=== PATIENT | female | born 1975 | race Caucasian/White ===

== ENCOUNTER 2016-11-04 14:31 | Emergency (ER) | payer OTHER ==
[~2016-11-04] VITALS: Ht 154.9 cm; Wt 95.0 kg
[2016-11-04] MEDS ORDERED: LORAZEPAM 1MG TABLET PO ONE (16:30)
[2016-11-04 18:40] VITALS: BP 118/76
== END 2016-11-04 19:05 | disposition home or self-care (01) ==
LOC: ER 16:23
DX: F41.0 Panic disorder [episodic paroxysmal anxiety] (principal); K59.00 Constipation, unspecified
CPT/HCPCS: 99284

== ENCOUNTER 2024-02-13 08:56 | Emergency (ER) | payer OTHER ==
[~2024-02-13] VITALS: Ht 157.5 cm; Wt 102.0 kg
[2024-02-13 09:04] VITALS: O2SAT 100
[2024-02-13 09:27] LABS: CLARITY URINE CLEAR (CLEAR); COLOR URINE YELLOW (YELLOW); GLUCOSE URINE NEGATIVE (NEGATIVE); KETONES URINE NEGATIVE (NEGATIVE); LEUKOCYTE ESTERASE URINE NEGATIVE (NEGATIVE); NITRITE URINE NEGATIVE (NEGATIVE); OCCULT BLOOD URINE NEGATIVE (NEGATIVE); PROTEIN URINE NEGATIVE (NEGATIVE); SPECIFIC GRAVITY URINE 1.013 (1.005-1.030); UROBILINOGEN URINE 0.2 E.U./dL (0.2-1.0)
[2024-02-13 09:34] LABS: BASOPHILS % 0.7 % (0.0-2.0); EOSINOPHILS % 1.5 % (0.0-5.0); HEMOGLOBIN. 14.8 g/dL (12.0-16.0); LYMPHOCYTES % 31.9 % (20.0-50.0); MEAN CORPUSCULAR HEMOGLOBIN 30.4 pg (28.0-32.0); MEAN CORPUSCULAR HGB CONC 34.4 g/dL (31.0-37.0); MEAN CORPUSCULAR VOLUME 88.4 fL (81.0-99.0); MEAN PLATELET VOLUME 7.5 fl (7.4-10.4); MONOCYTES % 4.8 % (2.0-8.0); NEUTROPHILS % 61.1 % (40.0-76.0); PLATELET 369 x1000/uL (130-400); RED BLOOD CELL COUNT 4.86 mill/uL (4.2-5.4); RED CELL DISTRIBUTION WIDTH 13.3 % (11.6-14.6); WHITE BLOOD COUNT 9.8 x1000/uL (4.5-11.0)
[2024-02-13 09:39] LABS: CHLORIDE 104 mEq/L (98-107); POTASSIUM 3.4 mEq/L (3.5-5.1); SODIUM 138 mEq/L (136-145)
[2024-02-13 09:40] LABS: CALCIUM 9.6 mg/dL (8.7-10.4); CARBON DIOXIDE 29 mEq/L (21-32)
[2024-02-13 09:45] LABS: CREATININE 0.6 mg/dL (0.6-1.0); GLUCOSE 91 mg/dL (70-105)
[2024-02-13 09:46] LABS: UREA NITROGEN BLOOD 9 mg/dL (9-23)
[2024-02-13 09:47] LABS: ALANINE AMINOTRANSFERASE 23 IU/L (10-49); ALBUMIN 4.7 g/dL (3.2-4.8); ASPARTATE AMINOTRANSFERASE 15 IU/L (<34); BILIRUBIN DIRECT 0.2 mg/dL (<=3.0)
[2024-02-13 09:48] LABS: BILIRUBIN TOTAL 0.8 mg/dL (0.1-1.0); PROTEIN TOTAL 7.8 g/dL (6.0-8.3)
[2024-02-13] MEDS: ONDANSETRON 4MG ODT PO ONE (09:54)
[2024-02-13 10:01] LABS: HCG SCREEN NEGATIVE
[2024-02-13] MEDS ORDERED: ONDA-239 PO (10:22)
[2024-02-13 10:48] VITALS: BP 138/73; PULSE 66; RESP 18; TEMP 36.66960; O2SAT 100
== END 2024-02-13 10:51 | disposition home or self-care (01) ==
LOC: ER 09:29
DX: R19.7 Diarrhea, unspecified (principal); F41.9 Anxiety disorder, unspecified
CPT/HCPCS: 99283; 80076; 80048; 81003; 84703; 83690; 85025; 36415; Q0162